=== PATIENT | male | born 1945 | race Caucasian/White ===

== ENCOUNTER 2020-03-10 09:51 | Emergency (ER) | payer MEDICARE, BC ==
[2020-03-10] MEDS ORDERED: Diphtheria,Pertussis(Acell),Tetanus Vaccine 0.5 ML SDV IM ONE (11:04)
[2020-03-10] MEDS ORDERED: Bacitracin Oint 1 GM U/D Packet TOP ONE (11:04)
[2020-03-10] MEDS ORDERED: Lidocaine 1% with EPINEPHrine 1:100,000 50 ML MDV SUBCUT STA (11:04)
--- NOTE | 2020-03-10 11:06 | EDM.PDOC ---
ED HPI GENERAL MEDICAL PROBLEM - General Chief Complaint: Upper Extremity Injury/Pain Stated Complaint: R ARM LACERATION Time Seen by Provider: 03/10/20 10:56 Source of Information: Reports: Patient, Family, RN Notes Reviewed History Limitations: Reports: No Limitations - History of Present Illness INITIAL COMMENTS - FREE TEXT/NARRATIVE: 74-year-old gentleman presents emergency department with a laceration to his right arm he injured himself getting out of the pickup when he slipped caught the inside of his arm on something on the pickup door large laceration medial aspect of the arm, bleeding is controlled by the time he arrived to the emergency department he has no functional complaints - Related Data Allergies Allergy/AdvReac Type Severity Reaction Status Date / Time No Known Allergies Allergy Verified 03/10/20 10:20 Home Meds: Home Meds Aspirin [Adult Low Dose Aspirin EC] 81 mg PO DAILY 06/02/17 [History] Hydrochlorothiazide/Lisinopril [Lisinopril-HCTZ 10-12.5 MG] 1 tab PO DAILY 06/02/17 [History] Verapamil [Calan SR] 1 tab PO DAILY 03/10/20 [History] atorvaSTATin [Lipitor] 1 tab PO DAILY 03/10/20 [History] Past Medical History Cardiovascular History: Reports: High Cholesterol, Hypertension Musculoskeletal History: Reports: Back Pain, Chronic - Past Surgical History Musculoskeletal Surgical History: Reports: Knee Replacement Social & Family History - Tobacco Use Smoking Status *Q: Never Smoker Review of Systems - Review of Systems Review Of Systems: See Below Musculoskeletal: Reports: No Symptoms Skin: Reports: Wound ED EXAM, GENERAL - Physical Exam Exam: See Below Free Text/Narrative:: Examination wound there is a large laceration medial aspect right arm near the biceps area bleeding is controlled it is completely through the dermis into the subcutaneous tissue Exam Limited By: No Limitations General Appearance: Alert, WD/WN, No Apparent Distress ED TRAUMA EXTREMITY PROCEDURES - Laceration/Wound Repair Left Arm Lac/Wound Length In cm: 10 Appearance: Subcutaneous, Irregular, Clean Distal NVT: Neuro & Vascular Intact, No Tendon Injury Anesthetic Type: Local Local Anesthesia - Lidocaine (Xylocaine): 1% with EPI Local Anesthetic Volume: 5cc Skin Prep: Chlorhexidine (Hibiciens), Saline Saline Irrigation (cc's): 120 Exploration/Debridement/Repair: Wound Explored, In a Bloodless Field, Explored to Base Closed With: Sutures Suture Size: 3-0 # of Sutures: 1 Suture Type: Prolene, Running Suture Size: 3-0 # of Sutures: 6 Repaired With: Vicryl Sterile Dressing Applied: Nurse Tetanus Status Addressed: Yes (2019) Complications: No Course - Vital Signs Last Recorded V/S: Last Vital Signs Temp 97.7 F 03/10/20 10:30 Pulse 66 03/10/20 10:30 Resp 14 03/10/20 10:30 BP 145/106 H 03/10/20 10:30 Pulse Ox 96 03/10/20 10:30 - Orders/Labs/Meds Orders: Active Orders 24 hr Category Date Time Status Vaccines to be Administered [RC] PER UNIT ROUTINE Care 03/10/20 11:04 Active Meds: Medications Discontinued Medications Generic Name Dose Route Start Last Admin Trade Name Jhon PRN Reason Stop Dose Admin Bacitracin 1 dose 03/10/20 11:04 03/10/20 11:16 Bacitracin Oint 1 Gm TOP 03/10/20 11:05 1 dose ONETIME ONE Administration Diphtheria/Tetanus/Acell Pertussis 0.5 ml 03/10/20 11:04 03/10/20 11:16 Adacel IM 03/10/20 11:05 0.5 ml .ONCE ONE Administration Lidocaine/Epinephrine 20 ml 03/10/20 11:04 03/10/20 11:15 Xylocaine 1% With Epinephrine 1:100,000 SUBCUT 03/10/20 11:05 20 ml NOW STA Administration Departure - Departure Time of Disposition: 11:50 Disposition: Home, Self-Care 01 Condition: Fair Clinical Impression: Laceration of right upper arm Qualifiers: Encounter type: initial encounter Qualified Code(s): S41.111A - Laceration without foreign body of right upper arm, initial encounter - Discharge Information Instructions: Laceration Care, Adult, [id number] Referrals: Kendall Weaver Sr, MD [Primary Care Provider] - Forms: ED Department Discharge Additional Instructions: Suture removal in 10 days, follow-up with primary care or return to the em ergency department for suture removal Sepsis Event Note (ED) - Evaluation Sepsis Screening Result: No Definite Risk - Focused Exam Vital Signs: Vital Signs Temp Pulse Resp BP Pulse Ox 03/10/20 10:30 97.7 F 66 14 145/106 H 96 - My Orders Last 24 Hours: My Active Orders 03/10/20 11:04 Vaccines to be Administered [RC] PER UNIT ROUTINE - Assessment/Plan Last 24 Hours: My Active Orders 03/10/20 11:04 Vaccines to be Administered [RC] PER UNIT ROUTINE Plan: Assessment Acuity = acute Site and laterality = 10 cm laceration right arm Etiology = secondary to trauma Manifestations = none Location of injury = Home Lab values = none Plan Suture removal in 10 days, follow wound care instruction sheet tetanus updated today This note was dictated using [employer] voice recognition software please call with any questions on syntax or grammar.
== END 2020-03-10 12:06 | disposition home or self-care (01) ==
LOC: JP.ED 09:51
DX: S41.111A Laceration without foreign body of right upper arm, initial encounter (principal); E78.00 Pure hypercholesterolemia, unspecified; I10 Essential (primary) hypertension; Z79.82 Long term (current) use of aspirin; Z79.899 Other long term (current) drug therapy; Z23 Encounter for immunization; W01.0XXA Fall on same level from slipping, tripping and stumbling without subsequent striking against object, initial encounter
CPT/HCPCS: 12004; 90471; 90715; 99282

== ENCOUNTER 2023-07-02 19:12 | Emergency (ER) | payer MEDICARE, BC ==
[2023-07-02] MEDS ORDERED: Propofol 200 MG/20 ML SDV ONE (19:54)
== END 2023-07-02 20:23 | disposition home or self-care (01) ==
LOC: JP.ED 19:12
DX: I48.92 Unspecified atrial flutter (principal); I10 Essential (primary) hypertension; I25.2 Old myocardial infarction; I48.91 Unspecified atrial fibrillation; E78.00 Pure hypercholesterolemia, unspecified; Z79.899 Other long term (current) drug therapy; Z79.01 Long term (current) use of anticoagulants
CPT/HCPCS: 92960; 93005; 99284; J2704